=== PATIENT | female | born 1945 | race Caucasian/White ===

== ENCOUNTER 2023-12-16 17:22 | Emergency (ER) | payer MEDICAID, OTHER ==
[~2023-12-16] VITALS: Ht 175.3 cm; Wt 150.0 kg
[2023-12-16 18:39] LABS: Urine Bacteria FEW /hpf (None Seen); Urine Blood Negative /uL (Negative); Urine Clarity Clear (Clear); Urine Color Yellow (Yellow); Urine Mucus FEW (None Seen); Urine Protein, UAD TRACE (Negative); Urine Specific Gravity 1.015 (1.001-1.035); Urine Urobilinogen Normal (Negative); Urine WBC 1 /hpf (0 - 5); Urine pH 5.5 (5.0-8.0)
[2023-12-16 18:55] LABS: Hematocrit 33.5 % (36.0-46.0); Hemoglobin 10.5 g/dL (12.2-16.2); Mean Corpuscular Hemoglobin 27.2 pg (28.0-32.0); Mean Corpuscular Hgb Conc. 31.4 g/dL (32.0-36.0); Mean Corpuscular Volume 86.6 fL (80.0-100.0); Red Blood Cells 3.86 10^6/uL (4.0-5.20); Red Cell Distribution Width 17.6 % (11.8-14.3); White Blood Cell 9.9 10^3/uL (4.4-10.8)
[2023-12-16 18:57] LABS: Basophils % (manual) 0 (0.0-2.0); Blast Cells 0; Metamyelocytes % 0; Myelocytes % 0; Promyelocytes % 0; Reactive Lymphocytes 0
[2023-12-16 19:06] LABS: Alanine Aminotransferase 48 U/L (7-40); Albumin 3.4 g/dL (3.2-4.8); Alkaline Phosphatase 76 U/L (46-116); Anion Gap 5 (5-15); Aspartate Aminotransferase 113 U/L (13-40); Blood Urea Nitrogen 20 mg/dL (9-23); Calcium 8.8 mg/dL (8.7-10.4); Carbon Dioxide 31 mmol/L (20-30); Chloride 102 mmol/L (98-107); Glucose 244 mg/dL (74-106); Lipase 24 U/L (12-53); Magnesium 2.1 mg/dL (1.6-2.6); Sodium 138 mmol/L (136-145)
[2023-12-16 19:07] LABS: Bilirubin, Total 0.2 mg/dL (0.2-1.0); Total Protein 7.4 g/dL (5.7-8.2)
[2023-12-16 19:09] VITALS: PULSE 69; RESP 16
[2023-12-16 19:20] LABS: Band Neutrophils % (manual) 18; Eosinophils % (manual) 1 (0-7); Lymphocytes % (manual) 24 (10.0-50.0); Monocytes % (manual) 6 (0-12); Platelet Estimate Adequate
[2023-12-16 19:30] VITALS: PULSE 75; RESP 22; O2SAT 96
[2023-12-16 20:35] VITALS: PULSE 75; RESP 22; O2SAT 96
[2023-12-17] MEDS: SODIUM CHLORIDE 0.9% 1,000 ML IVB ONE (00:05)
[2023-12-17 07:45] VITALS: PULSE 66; RESP 22; O2SAT 91
[2023-12-17 19:30] VITALS: PULSE 82; RESP 21; O2SAT 96
[2023-12-18 07:30] VITALS: RESP 20; O2SAT 96
[2023-12-18 13:15] VITALS: BP 136/60; PULSE 85; RESP 20; TEMP 98.2; O2SAT 96
== END 2023-12-18 13:45 ==
LOC: ER 17:22 → EDBD 17:22 → ER 12-18 13:45
DX: K52.9 Noninfective gastroenteritis and colitis, unspecified (principal); J44.9 Chronic obstructive pulmonary disease, unspecified; I10 Essential (primary) hypertension; R74.8 Abnormal levels of other serum enzymes; R00.1 Bradycardia, unspecified; Z88.0 Allergy status to penicillin; Z88.6 Allergy status to analgesic agent; Z79.899 Other long term (current) drug therapy
CPT/HCPCS: 36415; 71045; 74176; 80053; 81001; 82962; 83605; 83690; 83735; 84484; 85007; 85027; 93005; 96360; 96361; 99285; J7030

== ENCOUNTER 2024-01-02 15:17 | Inpatient (IN) | payer MEDICARE, MEDICAID ==
[~2024-01-02] VITALS: Ht 167.6 cm; Wt 140.7 kg
[2024-01-02 16:52] LABS: Hematocrit 32.7 % (36.0-46.0); Hemoglobin 10.3 g/dL (12.2-16.2); Mean Corpuscular Hemoglobin 26.6 pg (28.0-32.0); Mean Corpuscular Hgb Conc. 31.6 g/dL (32.0-36.0); Red Blood Cells 3.89 10^6/uL (4.0-5.20); Red Cell Distribution Width 17.2 % (11.8-14.3); White Blood Cell 9.8 10^3/uL (4.4-10.8)
[2024-01-02 16:55] LABS: Basophils % (manual) 0 (0.0-2.0); Blast Cells 0; Metamyelocytes % 0; Myelocytes % 0; Promyelocytes % 0; Reactive Lymphocytes 0
[2024-01-02] MEDS ORDERED: SODIUM CHLORIDE 0.9% 4,100 ML IV ONE (17:15)
[2024-01-02] MEDS: AZTREONAM 1GM INJ 1 GM in D5W 5% 50 ML IV ONE (17:15)
[2024-01-02 17:29] LABS: Alkaline Phosphatase 49 U/L (46-116); Anion Gap 5 (5-15); Aspartate Aminotransferase 12 U/L (13-40); BUN/Creatinine Ratio 10.8 (10.0-20.0); Blood Urea Nitrogen 11 mg/dL (9-23); Calcium 8.3 mg/dL (8.5-10.1); Carbon Dioxide 29 mmol/L (20-30); Chloride 100 mmol/L (98-107); Glucose 137 mg/dL (74-106); Potassium 4.5 mmol/L (3.5-5.1); Sodium 134 mmol/L (136-145)
[2024-01-02 17:30] LABS: Albumin 2.9 g/dL (3.2-4.8); Bilirubin, Total < 0.2 mg/dL (0.2-1.0); Total Protein 6.9 g/dL (5.7-8.2)
[2024-01-02 17:32] LABS: Alanine Aminotransferase < 9 U/L (7-40)
[2024-01-02 17:33] LABS: Band Neutrophils % (manual) 5; Eosinophils % (manual) 35 (0-7); Lymphocytes % (manual) 15 (10.0-50.0); Monocytes % (manual) 10 (0-12); Platelet Estimate Adequate
[2024-01-02 17:34] LABS: Anisocytosis Slight
[2024-01-02] MEDS: ACETAMINOPHEN 325 MG TAB PO ONE (17:41)
[2024-01-02 17:44] LABS: INR 1.49 (0.9-1.15); Prothrombin Time 15.2 sec (9.3-11.8)
[2024-01-02] MEDS: SODIUM CHLORIDE 0.9% 1,000 ML IV ONE (18:02)
[2024-01-02] MEDS: VANCOMYCIN 1GM/200ML 200 ML IV ONE (18:02)
[2024-01-02] MEDS ORDERED: MORPHINE SULFATE INJ 2 MG/ml SYRG IV PRN (20:45)
[2024-01-02] MEDS ORDERED: NITROGLYCERIN 0.4 MG SL TAB SL PRN (20:45)
[2024-01-02 23:00] VITALS: PULSE 89; RESP 22; O2SAT 94
[2024-01-02] MEDS: CIPROFLOXACIN 400MG/200ML 200 ML IV ONE (23:24)
[2024-01-03] VITALS (54 sets, daily range): BP systolic 58–202; BP diastolic 24–122; PULSE 85–167; RESP 18–38; TEMP 96.6–104.9; O2SAT 91–100
[2024-01-03] MEDS: ACETAMINOPHEN 325 MG TAB PO PRN (00:11)
[2024-01-03] MEDS: diphenhdrAMINE HCL 50 MG/1 ML VL IV ONE (00:12)
[2024-01-03 00:46] LABS: Urine Bacteria FEW /hpf (None Seen); Urine Blood TRACE /uL (Negative); Urine Clarity Clear (Clear); Urine Color Yellow (Yellow); Urine Protein, UAD Negative (Negative); Urine Specific Gravity 1.013 (1.001-1.035); Urine Urobilinogen Normal (Negative); Urine WBC 1 /hpf (0 - 5)
[2024-01-03 01:39] LABS: COVID19 ANTIGEN SOFIA FIA NEGATIVE (NEGATIVE); Rapid Influenza A Negative (Negative); Rapid Influenza B Negative (Negative)
[2024-01-03] MEDS ORDERED: ALBUTEROL SULF 2.5 MG/0.5ML(0.5%) NEB SOLN NEB PRN (07:00)
[2024-01-03] MEDS ORDERED: diphenhdrAMINE HCL 50 MG/1 ML VL IV PRN (08:30)
[2024-01-03] MEDS: ENOXAPARIN SOD 40 MG/0.4 ML SYRINGE SC SCH (08:36)
[2024-01-03] MEDS: LISINOPRIL 5 MG TAB PO SCH (08:36)
[2024-01-03] MEDS: levoFLOXacin 500MG 100 ML IV SCH (08:37)
[2024-01-03 09:22] LABS: Base Excess -1.5 mmol/L (-2.0-2.0)
[2024-01-03] MEDS: FUROSEMIDE 40 MG/4 ML VIAL IV ONE (09:35)
[2024-01-03 09:38] LABS: Hemoglobin 10.5 g/dL (12.2-16.2); Mean Corpuscular Hgb Conc. 31.8 g/dL (32.0-36.0); Mean Corpuscular Volume 85.1 fL (80.0-100.0); Red Blood Cells 3.88 10^6/uL (4.0-5.20); Red Cell Distribution Width 17.3 % (11.8-14.3); White Blood Cell 8.1 10^3/uL (4.4-10.8)
[2024-01-03 09:45] LABS: Alkaline Phosphatase 54 U/L (46-116); Anion Gap 4 (5-15); Aspartate Aminotransferase 18 U/L (13-40); BUN/Creatinine Ratio 16.5 (10.0-20.0); Blood Urea Nitrogen 15 mg/dL (9-23); Calcium 7.7 mg/dL (8.5-10.1); Carbon Dioxide 29 mmol/L (20-30); Chloride 99 mmol/L (98-107); Glucose 160 mg/dL (74-106); Potassium 4.6 mmol/L (3.5-5.1); Sodium 132 mmol/L (136-145)
[2024-01-03 09:46] LABS: Albumin 2.8 g/dL (3.2-4.8); Basophils % (manual) 0 (0.0-2.0); Bilirubin, Total 0.2 mg/dL (0.2-1.0); Blast Cells 0; Promyelocytes % 0; Total Protein 6.8 g/dL (5.7-8.2)
[2024-01-03] MEDS: ALBUTEROL SULF 2.5 MG/0.5ML(0.5%) NEB SOLN NEB PRN (09:46)
[2024-01-03 09:47] LABS: Alanine Aminotransferase < 9 U/L (7-40)
[2024-01-03] MEDS ORDERED: FUROSEMIDE 40 MG TAB PO SCH (10:00)
[2024-01-03] MEDS: LORazepam 2MG/ML-1ML VIAL IV ONE (10:33)
[2024-01-03] MEDS: ETOMIDATE (2MG/ML) 20ML VIAL IV ONE ×2 (11:30→11:33)
[2024-01-03] MEDS: ROCURONIUM 10MG/ML 10ML VIAL IV ONE ×2 (11:30→11:33)
[2024-01-03] MEDS: MIDAZOLAM DRIP 50 mg/50mL 50 ML IV SCH (11:34)
[2024-01-03 12:28] LABS: Band Neutrophils % (manual) 10; Eosinophils % (manual) 15 (0-7); Lymphocytes % (manual) 44 (10.0-50.0); Metamyelocytes % 1; Monocytes % (manual) 4 (0-12); Myelocytes % 1; Platelet Estimate Adequate; Reactive Lymphocytes 2
[2024-01-03] MEDS: fentaNYL Drip 2500mCg/250mlNS 250 ML IV SCH (13:47)
[2024-01-03] MEDS ORDERED: VANCOMYCIN PER PHARMACY 0 MG IV SCH (14:00)
[2024-01-03] MEDS: ACETAMINOPHEN 325 MG TAB PO ONE (14:00)
[2024-01-03] MEDS ORDERED: CLINDAMYCIN 600MG IV 50 ML IV SCH (14:00)
[2024-01-03] MEDS ORDERED: ACETAMINOPHEN 325 MG TAB PO PRN (14:00)
[2024-01-03] MEDS: NOREPINEPHRINE 8 MG/250ML KIT 250 ML IV ONE (14:07)
[2024-01-03] MEDS: NOREPINEPHRINE 8 MG/250ML KIT 250 ML IV SCH (14:12)
[2024-01-03] MEDS: ACETAMINOPHEN IV 1000 MG/100ML (10MG/ML) IV PRN (14:45)
[2024-01-03] MEDS: ACETAMINOPHEN IV 1000 MG/100ML (10MG/ML) IV ONE (15:00)
[2024-01-03 15:28] LABS: Amphetamine Screen, Urine Neg (NEGATIVE); Barbiturate Scree,Urine Neg (NEGATIVE); Benzodiazephine Screen, Urine Pos (NEGATIVE)
[2024-01-03 15:29] LABS: Cannabinoid Screen, Urine Neg (NEGATIVE); Cocaine Screen, Urine Neg (NEGATIVE); Opiate Scree,Urine Neg (NEGATIVE); Phencyclidine Screen, Urine Neg (NEGATIVE)
[2024-01-03 15:45] LABS: Hematocrit 35.2 % (36.0-46.0); Mean Corpuscular Hemoglobin 26.4 pg (28.0-32.0); Mean Corpuscular Hgb Conc. 31.3 g/dL (32.0-36.0); Mean Corpuscular Volume 84.4 fL (80.0-100.0); Red Blood Cells 4.17 10^6/uL (4.0-5.20); Red Cell Distribution Width 17.2 % (11.8-14.3); White Blood Cell 13.7 10^3/uL (4.4-10.8)
[2024-01-03 15:46] LABS: Basophils % (manual) 0 (0.0-2.0); Blast Cells 0; Metamyelocytes % 0; Myelocytes % 0; Promyelocytes % 0; Reactive Lymphocytes 0
[2024-01-03 15:53] LABS: Chloride 98 mmol/L (98-107); Potassium 4.3 mmol/L (3.5-5.1); Sodium 132 mmol/L (136-145)
[2024-01-03 15:54] LABS: Anion Gap 9 (5-15); Calcium 7.8 mg/dL (8.7-10.4); Carbon Dioxide 25 mmol/L (20-30)
[2024-01-03 15:59] LABS: BUN/Creatinine Ratio 14.6 (10.0-20.0); Blood Urea Nitrogen 18 mg/dL (9-23); Glucose 194 mg/dL (74-106)
[2024-01-03] MEDS: VANCOMYCIN 1GM/200ML 200 ML IV SCH (16:21)
[2024-01-03 17:34] LABS: Band Neutrophils % (manual) 8; Eosinophils % (manual) 32 (0-7); Lymphocytes % (manual) 18 (10.0-50.0); Monocytes % (manual) 7 (0-12)
[2024-01-03 17:35] LABS: Anisocytosis Slight; Platelet Estimate Adequate
[2024-01-03] MEDS: FUROSEMIDE 40 MG/4 ML VIAL IV SCH (18:35)
[2024-01-03 19:28] LABS: Lactic Acid w/Reflex 2.6 mmol/L (0.4-2.0)
[2024-01-03] MEDS: NYSTATIN TOPICAL POWDER 15GM TOP SCH (22:00)
[2024-01-04] VITALS (89 sets, daily range): BP systolic 62–144; BP diastolic 32–68; PULSE 69–115; RESP 13–25; TEMP 97.3–100.6; O2SAT 92–100
[2024-01-04 03:43] LABS: Hemoglobin 10.7 g/dL (12.2-16.2); White Blood Cell 15.5 10^3/uL (4.4-10.8)
[2024-01-04 03:46] LABS: Hematocrit 34.2 % (36.0-46.0); Mean Corpuscular Hemoglobin 26.5 pg (28.0-32.0); Mean Corpuscular Hgb Conc. 31.3 g/dL (32.0-36.0); Mean Corpuscular Volume 84.7 fL (80.0-100.0); Red Blood Cells 4.03 10^6/uL (4.0-5.20); Red Cell Distribution Width 17.3 % (11.8-14.3)
[2024-01-04 03:50] LABS: Basophils % (manual) 0 (0.0-2.0); Blast Cells 0; Metamyelocytes % 0; Promyelocytes % 0; Reactive Lymphocytes 0
[2024-01-04 03:57] LABS: Albumin 2.3 g/dL (3.2-4.8); Alkaline Phosphatase 69 U/L (46-116); Anion Gap 8 (5-15); Aspartate Aminotransferase 16 U/L (13-40); BUN/Creatinine Ratio 16.3 (10.0-20.0); Blood Urea Nitrogen 23 mg/dL (9-23); Calcium 7.4 mg/dL (8.5-10.1); Carbon Dioxide 26 mmol/L (20-30); Chloride 99 mmol/L (98-107); Cholesterol 97 mg/dL (< 200); Glucose 176 mg/dL (74-106); HDL Cholesterol < 5 mg/dL (40-59); LDL Cholesterol 26 mg/dL (< 100); Potassium 4.3 mmol/L (3.5-5.1); Sodium 133 mmol/L (136-145); Triglycerides 259 mg/dL (< 150)
[2024-01-04 03:58] LABS: Bilirubin, Total 0.3 mg/dL (0.2-1.0); Total Protein 6.2 g/dL (5.7-8.2)
[2024-01-04 04:00] LABS: Alanine Aminotransferase < 9 U/L (7-40)
[2024-01-04 04:11] LABS: Lipase 15 U/L (12-53); Magnesium 1.5 mg/dL (1.6-2.6)
[2024-01-04 04:37] LABS: Anisocytosis Slight; Band Neutrophils % (manual) 31; Eosinophils % (manual) 27 (0-7); Lymphocytes % (manual) 9 (10.0-50.0); Monocytes % (manual) 8 (0-12); Myelocytes % 1; Platelet Estimate Adequate
[2024-01-04 04:38] LABS: Ovalocytes FEW
[2024-01-04 04:39] LABS: Large Platelets FEW
[2024-01-04 04:40] LABS: Stomatocytes Moderate
[2024-01-04] MEDS: MAGNESIUM SULFATE 1GM/100ML 100 ML IV SCH (05:08)
[2024-01-04 07:35] LABS: Base Excess -2.7 mmol/L (-2.0-2.0)
[2024-01-04] MEDS: ASPirin 325 MG TAB PO ONE (10:15)
[2024-01-04] MEDS: PANTOPRAZOLE 40 MG/10 ML VIAL INJ IV ONE (10:40)
[2024-01-04] MEDS: MEROPENEM 1GM IVPB 50 ML IV ONE (10:40)
[2024-01-04] MEDS: SODIUM CHLORIDE 0.9% 500 ML IV ONE (10:55)
[2024-01-04 11:30] LABS: Hemoglobin 10.8 g/dL (12.2-16.2)
[2024-01-04 11:32] LABS: Hematocrit 33.9 % (36.0-46.0); Mean Corpuscular Hemoglobin 26.7 pg (28.0-32.0); Mean Corpuscular Hgb Conc. 31.9 g/dL (32.0-36.0); Mean Corpuscular Volume 83.9 fL (80.0-100.0); Red Blood Cells 4.04 10^6/uL (4.0-5.20); Red Cell Distribution Width 17.2 % (11.8-14.3); White Blood Cell 15.6 10^3/uL (4.4-10.8)
[2024-01-04 11:41] LABS: Basophils % (manual) 0 (0.0-2.0); Blast Cells 0; Metamyelocytes % 0; Myelocytes % 0; Promyelocytes % 0; Reactive Lymphocytes 0
[2024-01-04 11:46] LABS: INR 2.45 (0.9-1.15); Partial Thromboplastin Time 49.2 SEC (24.5-34.5); Prothrombin Time 24.3 sec (9.3-11.8)
[2024-01-04] MEDS: SODIUM CHLORIDE 0.9% 1,000 ML IV SCH (12:00)
[2024-01-04 12:51] LABS: Band Neutrophils % (manual) 13; Eosinophils % (manual) 39 (0-7); Lymphocytes % (manual) 14 (10.0-50.0); Monocytes % (manual) 3 (0-12)
[2024-01-04 12:52] LABS: Platelet Estimate Adequate; RBC Morphology Normal
[2024-01-04] MEDS: HEPARIN DRIP/D5W 100UNITS/ML 250 ML IV SCH ×2 (12:57→21:15)
[2024-01-04] MEDS: ACETAMINOPHEN 650 mg PER 20.3 mL UD GT PRN (17:13)
[2024-01-04 20:10] LABS: INR 2.63 (0.9-1.15); Prothrombin Time 25.9 sec (9.3-11.8)
[2024-01-04 20:17] LABS: Partial Thromboplastin Time 113.4 SEC (24.5-34.5)
[2024-01-04] MEDS: MUPIROCIN 2% OINT 15gm or 22gm TOP SCH (22:00)
[2024-01-04] MEDS: MEROPENEM 1GM IVPB 50 ML IV SCH (22:00)
[2024-01-05] VITALS (83 sets, daily range): BP systolic 72–143; BP diastolic 29–88; PULSE 82–121; RESP 17–25; TEMP 98.2–99.5; O2SAT 89–99
[2024-01-05 02:13] LABS: Hematocrit 35.4 % (36.0-46.0); Hemoglobin 10.9 g/dL (12.2-16.2); Mean Corpuscular Hemoglobin 26.4 pg (28.0-32.0); Mean Corpuscular Hgb Conc. 30.9 g/dL (32.0-36.0); Mean Corpuscular Volume 85.4 fL (80.0-100.0); Red Blood Cells 4.14 10^6/uL (4.0-5.20); Red Cell Distribution Width 17.8 % (11.8-14.3); White Blood Cell 21.2 10^3/uL (4.4-10.8)
[2024-01-05 02:18] LABS: Basophils % (manual) 0 (0.0-2.0); Blast Cells 0; Metamyelocytes % 0; Myelocytes % 0; Promyelocytes % 0; Reactive Lymphocytes 0
[2024-01-05 02:32] LABS: Albumin 2.2 g/dL (3.2-4.8); Alkaline Phosphatase 146 U/L (46-116); Anion Gap 12 (5-15); Aspartate Aminotransferase 24 U/L (13-40); BUN/Creatinine Ratio 16.7 (10.0-20.0); Bilirubin, Total 0.3 mg/dL (0.2-1.0); Blood Urea Nitrogen 21 mg/dL (9-23); Calcium 7.6 mg/dL (8.7-10.4); Carbon Dioxide 20 mmol/L (20-30); Chloride 101 mmol/L (98-107); Glucose 178 mg/dL (74-106); Magnesium 1.9 mg/dL (1.6-2.6); Sodium 133 mmol/L (136-145); Total Protein 6.2 g/dL (5.7-8.2)
[2024-01-05 02:39] LABS: INR 2.6 (0.9-1.15); Prothrombin Time 25.6 sec (9.3-11.8)
[2024-01-05 03:01] LABS: Alanine Aminotransferase < 9 U/L (7-40)
[2024-01-05 03:02] LABS: Partial Thromboplastin Time 87.1 SEC (24.5-34.5)
[2024-01-05 05:23] LABS: Band Neutrophils % (manual) 30; Eosinophils % (manual) 33 (0-7); Lymphocytes % (manual) 15 (10.0-50.0); Monocytes % (manual) 7 (0-12)
[2024-01-05 05:24] LABS: Platelet Estimate Adequate
[2024-01-05 07:19] LABS: Base Excess -6.4 mmol/L (-2.0-2.0)
[2024-01-05] MEDS: PANTOPRAZOLE 40 MG/10 ML VIAL INJ IV SCH (10:47)
[2024-01-05 11:19] LABS: INR 2.62 (0.9-1.15); Partial Thromboplastin Time 59.8 SEC (24.5-34.5); Prothrombin Time 25.8 sec (9.3-11.8)
[2024-01-05] MEDS: ASPirin 81 mg TAB PO SCH (11:33)
[2024-01-05 17:17] LABS: INR 2.58 (0.9-1.15); Partial Thromboplastin Time 63.5 SEC (24.5-34.5); Prothrombin Time 25.5 sec (9.3-11.8)
[2024-01-05] MEDS: PHENYLEPHRINE IV 250 ML IV ONE (22:50)
[2024-01-05] MEDS: PHENYLEPHRINE IV 250 ML IV SCH (22:50)
[2024-01-05 22:52] LABS: INR 2.48 (0.9-1.15); Partial Thromboplastin Time 67.9 SEC (24.5-34.5); Prothrombin Time 24.5 sec (9.3-11.8)
[2024-01-05 23:07] LABS: Hematocrit 36.3 % (36.0-46.0)
[2024-01-05 23:10] LABS: Lactic Acid w/Reflex 2.1 mmol/L (0.4-2.0)
[2024-01-06] VITALS (106 sets, daily range): BP systolic 76–186; BP diastolic 18–91; PULSE 88–181; RESP 16–27; TEMP 98.6–100.6; O2SAT 90–100
[2024-01-06] MEDS: VASOPRESSIN 20 UNITS in SODIUM CHL 0.9% 99 ML IV SCH (02:00)
[2024-01-06 04:23] LABS: Mean Corpuscular Hemoglobin 26.3 pg (28.0-32.0)
[2024-01-06] MEDS: HEPARIN DRIP/D5W 100UNITS/ML 250 ML IV SCH (04:23)
[2024-01-06 04:26] LABS: Hematocrit 35.1 % (36.0-46.0); Hemoglobin 10.8 g/dL (12.2-16.2); Mean Corpuscular Hgb Conc. 30.9 g/dL (32.0-36.0); Mean Corpuscular Volume 85.1 fL (80.0-100.0); Red Blood Cells 4.13 10^6/uL (4.0-5.20); Red Cell Distribution Width 18.2 % (11.8-14.3); White Blood Cell 29.4 10^3/uL (4.4-10.8)
[2024-01-06 04:42] LABS: Band Neutrophils % (manual) 0; Basophils % (manual) 0 (0.0-2.0); Blast Cells 0; Metamyelocytes % 0; Myelocytes % 0; Promyelocytes % 0; Reactive Lymphocytes 0
[2024-01-06 04:44] LABS: Albumin 2.1 g/dL (3.2-4.8); Alkaline Phosphatase 291 U/L (46-116); Anion Gap 9 (5-15); Aspartate Aminotransferase 18 U/L (13-40); BUN/Creatinine Ratio 14.3 (10.0-20.0); Bilirubin, Total 0.2 mg/dL (0.2-1.0); Blood Urea Nitrogen 22 mg/dL (9-23); Calcium 7.5 mg/dL (8.7-10.4); Carbon Dioxide 21 mmol/L (20-30); Chloride 104 mmol/L (98-107); Glucose 183 mg/dL (74-106); Magnesium 2.1 mg/dL (1.6-2.6); Potassium 4.3 mmol/L (3.5-5.1); Sodium 134 mmol/L (136-145); Total Protein 6.5 g/dL (5.7-8.2)
[2024-01-06 04:51] LABS: Alanine Aminotransferase < 9 U/L (7-40)
[2024-01-06 06:36] LABS: Eosinophils % (manual) 46 (0-7); Lymphocytes % (manual) 17 (10.0-50.0); Monocytes % (manual) 4 (0-12); Platelet Estimate Adequate
[2024-01-06 07:45] LABS: INR 3.02 (0.9-1.15); Partial Thromboplastin Time 63.8 SEC (24.5-34.5); Prothrombin Time 29.5 sec (9.3-11.8)
[2024-01-06] MEDS: NOREPINEPHRINE BITARTRATE 32 MG in SODIUM CHL 0.9% 218 ML IV SCH (09:22)
[2024-01-06] MEDS: PHENYLEPHRINE INJ 80 MG in SODIUM CHL 0.9% 242 ML IV SCH (09:34)
[2024-01-06 09:38] LABS: Base Excess -8.2 mmol/L (-2.0-2.0)
[2024-01-06] MEDS: BUMETANIDE 2.5mg/10ml (0.25 mg/ml) INJ IV SCH (13:04)
[2024-01-06 13:05] LABS: Creatinine, Urine 151.72 mg/dL (30.0-125.0)
[2024-01-06 13:06] LABS: Creatinine, Urine 149.9 mg/dL (30.0-125.0)
[2024-01-06 13:08] LABS: Protein, Urine 385.6 mg/dL (0.0-11.9); Urine Protein/Creatinine Ratio 2.57
[2024-01-06] MEDS: DOPamine 1600MCG/ML D5W 250 ML IV SCH (15:32)
[2024-01-06] MEDS: EPINEPHrine HCL 250 ML IV ONE (19:19)
[2024-01-06] MEDS: EPINEPHrine HCL 250 ML IV SCH (19:19)
[2024-01-06] MEDS: SODIUM CHLORIDE 0.9% 500 ML IV ONE (19:34)
[2024-01-07] VITALS (83 sets, daily range): BP systolic 88–166; BP diastolic 22–65; PULSE 58–112; RESP 23–28; TEMP 97.7–99.7; O2SAT 96–100
[2024-01-07 04:24] LABS: Hemoglobin 10.7 g/dL (12.2-16.2); Mean Corpuscular Hemoglobin 26.2 pg (28.0-32.0)
[2024-01-07 04:27] LABS: Hematocrit 33.9 % (36.0-46.0); Mean Corpuscular Hgb Conc. 31.6 g/dL (32.0-36.0); Mean Corpuscular Volume 83.1 fL (80.0-100.0); Red Blood Cells 4.08 10^6/uL (4.0-5.20); White Blood Cell 22.8 10^3/uL (4.4-10.8)
[2024-01-07 04:33] LABS: Basophils % (manual) 0 (0.0-2.0); Blast Cells 0; Promyelocytes % 0; Reactive Lymphocytes 0
[2024-01-07 04:42] LABS: Albumin 1.7 g/dL (3.2-4.8); Alkaline Phosphatase 374 U/L (46-116); Anion Gap 9 (5-15); Aspartate Aminotransferase 27 U/L (13-40); Blood Urea Nitrogen 25 mg/dL (9-23); Calcium 7.2 mg/dL (8.7-10.4); Carbon Dioxide 19 mmol/L (20-30); Chloride 109 mmol/L (98-107); Glucose 177 mg/dL (74-106); Magnesium 1.9 mg/dL (1.6-2.6); Potassium 4.1 mmol/L (3.5-5.1); Sodium 137 mmol/L (136-145)
[2024-01-07 04:43] LABS: Bilirubin, Total 0.3 mg/dL (0.2-1.0); Total Protein 5.7 g/dL (5.7-8.2)
[2024-01-07 04:54] LABS: INR 3.93 (0.9-1.15); Prothrombin Time 37.7 sec (9.3-11.8)
[2024-01-07 04:56] LABS: Partial Thromboplastin Time 106.5 SEC (24.5-34.5)
[2024-01-07 04:58] LABS: Alanine Aminotransferase < 9 U/L (7-40)
[2024-01-07] MEDS: HEPARIN DRIP/D5W 100UNITS/ML 250 ML IV SCH (06:21)
[2024-01-07 07:29] LABS: Eosinophils % (manual) 37 (0-7); Myelocytes % 1
[2024-01-07 07:30] LABS: Band Neutrophils % (manual) 5; Lymphocytes % (manual) 13 (10.0-50.0); Metamyelocytes % 1; Monocytes % (manual) 4 (0-12)
[2024-01-07 07:32] LABS: Anisocytosis Slight; Hypochromia Slight; Platelet Estimate Decreased
[2024-01-07 07:32] LABS: Base Excess -8.9 mmol/L (-2.0-2.0)
[2024-01-07] MEDS: SODIUM BICARB 50mEq/50ml Vial 50 ML in SOD CHL 0.45% 1,000 ML IV SCH (13:42)
[2024-01-08] VITALS (106 sets, daily range): BP systolic 74–155; BP diastolic 26–67; PULSE 60–111; RESP 20–30; TEMP 97.5–99; O2SAT 95–100
[2024-01-08 03:51] LABS: Hemoglobin 9.9 g/dL (12.2-16.2)
[2024-01-08 03:54] LABS: Hematocrit 31.1 % (36.0-46.0); Mean Corpuscular Hemoglobin 26.6 pg (28.0-32.0); Mean Corpuscular Volume 83.3 fL (80.0-100.0); Red Blood Cells 3.73 10^6/uL (4.0-5.20); Red Cell Distribution Width 18.4 % (11.8-14.3); White Blood Cell 26.6 10^3/uL (4.4-10.8)
[2024-01-08 04:01] LABS: Basophils % (manual) 0 (0.0-2.0); Blast Cells 0; Myelocytes % 0; Promyelocytes % 0
[2024-01-08 04:02] LABS: Chloride 110 mmol/L (98-107); Potassium 4.1 mmol/L (3.5-5.1); Sodium 136 mmol/L (136-145)
[2024-01-08 04:03] LABS: Anion Gap 6 (5-15); Carbon Dioxide 20 mmol/L (20-30)
[2024-01-08 04:04] LABS: Calcium 7.3 mg/dL (8.7-10.4)
[2024-01-08 04:09] LABS: BUN/Creatinine Ratio 14.2 (10.0-20.0); Blood Urea Nitrogen 32 mg/dL (9-23); Glucose 182 mg/dL (74-106)
[2024-01-08 07:41] LABS: Base Excess -7.1 mmol/L (-2.0-2.0)
[2024-01-08 08:25] LABS: Band Neutrophils % (manual) 7; Eosinophils % (manual) 42 (0-7); Lymphocytes % (manual) 16 (10.0-50.0); Metamyelocytes % 1; Monocytes % (manual) 5 (0-12); Reactive Lymphocytes 1
[2024-01-08 08:26] LABS: Anisocytosis Slight; Platelet Estimate Decreased
[2024-01-08] MEDS: VANCOMYCIN 1GM/200ML 200 ML IV ONE (10:12)
[2024-01-08] MEDS: Jevity 1.2 Cal/Fiber 1 Liter GT SCH (10:23)
[2024-01-08] MEDS: ALBUTEROL SULF 2.5 MG/0.5ML(0.5%) NEB SOLN NEB PRN (13:43)
[2024-01-08] MEDS: IPRATROPIUM BROM 0.5 MG/2.5ML INH SOL NEB PRN (13:43)
[2024-01-09] VITALS (109 sets, daily range): BP systolic 86–204; BP diastolic 24–68; PULSE 62–120; RESP 14–27; TEMP 75.4–99.3; O2SAT 88–100
[2024-01-09 04:09] LABS: Calcium 6.8 mg/dL (8.7-10.4); Chloride 109 mmol/L (98-107); Potassium 3.8 mmol/L (3.5-5.1); Sodium 138 mmol/L (136-145)
[2024-01-09 04:10] LABS: Anion Gap 6 (5-15); Carbon Dioxide 23 mmol/L (20-30); Hemoglobin 8.3 g/dL (12.2-16.2); Mean Corpuscular Hemoglobin 26.1 pg (28.0-32.0)
[2024-01-09 04:12] LABS: Hematocrit 26.4 % (36.0-46.0); Mean Corpuscular Hgb Conc. 31.5 g/dL (32.0-36.0); Mean Corpuscular Volume 82.8 fL (80.0-100.0); Red Cell Distribution Width 18.3 % (11.8-14.3)
[2024-01-09 04:15] LABS: BUN/Creatinine Ratio 16.9 (10.0-20.0); Blood Urea Nitrogen 35 mg/dL (9-23); Glucose 148 mg/dL (74-106)
[2024-01-09 04:27] LABS: Basophils % (manual) 0 (0.0-2.0); Blast Cells 0; Myelocytes % 0; Promyelocytes % 0; Reactive Lymphocytes 0
[2024-01-09 05:24] LABS: Anisocytosis Slight; Band Neutrophils % (manual) 13; Eosinophils % (manual) 39 (0-7); Lymphocytes % (manual) 13 (10.0-50.0); Metamyelocytes % 1; Monocytes % (manual) 2 (0-12); Platelet Estimate Decreased; Smudge Cells 3 /100 WBC
[2024-01-09 05:25] LABS: Stomatocytes Few; Target Cell FEW
[2024-01-09 08:17] LABS: Base Excess -5.9 mmol/L (-2.0-2.0)
[2024-01-09] MEDS ORDERED: ALBUMIN 25% 100 ML IV SCH (14:15)
[2024-01-09] MEDS: ALBUMIN 25% 100 ML IV ONE ×2 (14:15→15:40)
[2024-01-09] MEDS ORDERED: metOLazone 5 MG TAB GT SCH (14:15)
[2024-01-09] MEDS: DOPamine 1600MCG/ML D5W 250 ML IV SCH (15:28)
[2024-01-09] MEDS: SODIUM BICARBONATE 650 MG TAB NG SCH (15:40)
[2024-01-09] MEDS: BUMETANIDE INJECTION 12.5 MG in GIVE UN-DILUTED 0 ML IV SCH (16:10)
[2024-01-09] MEDS: metOLazone 5 MG TAB GT ONE (16:16)
[2024-01-09] MEDS: MIDODRINE HCL 10 MG TAB PO SCH (18:08)
[2024-01-09] MEDS: METOCLOPRAMIDE HCL 5MG/ml INJ 2ml VIAL IV SCH (18:08)
[2024-01-09] MEDS: ALBUMIN 25% 100 ML IV SCH (23:54)
[2024-01-10] VITALS (107 sets, daily range): BP systolic 77–178; BP diastolic 8–74; PULSE 74–115; RESP 22–26; TEMP 97.3–98.6; O2SAT 89–100
[2024-01-10 02:38] LABS: Hematocrit 29.4 % (36.0-46.0)
[2024-01-10 02:41] LABS: Hemoglobin 9.4 g/dL (12.2-16.2); Mean Corpuscular Hemoglobin 26.3 pg (28.0-32.0); Red Blood Cells 3.59 10^6/uL (4.0-5.20); Red Cell Distribution Width 17.7 % (11.8-14.3); White Blood Cell 28.5 10^3/uL (4.4-10.8)
[2024-01-10 02:45] LABS: Basophils % (manual) 0 (0.0-2.0); Blast Cells 0; Myelocytes % 0; Promyelocytes % 0; Reactive Lymphocytes 0
[2024-01-10 02:47] LABS: Chloride 107 mmol/L (98-107); Potassium 3.5 mmol/L (3.5-5.1); Sodium 137 mmol/L (136-145)
[2024-01-10 02:48] LABS: Anion Gap 8 (5-15); Calcium 7.4 mg/dL (8.7-10.4); Carbon Dioxide 22 mmol/L (20-30)
[2024-01-10 02:53] LABS: Glucose 204 mg/dL (74-106)
[2024-01-10 02:54] LABS: BUN/Creatinine Ratio 22.9 (10.0-20.0); Blood Urea Nitrogen 38 mg/dL (9-23)
[2024-01-10 02:55] LABS: Albumin 2.2 g/dL (3.2-4.8)
[2024-01-10 06:41] LABS: Band Neutrophils % (manual) 20; Eosinophils % (manual) 39 (0-7); Lymphocytes % (manual) 12 (10.0-50.0); Metamyelocytes % 10; Monocytes % (manual) 2 (0-12)
[2024-01-10 06:44] LABS: Platelet Estimate Decreased
[2024-01-10 08:00] LABS: Base Excess -6.3 mmol/L (-2.0-2.0)
[2024-01-10] MEDS ORDERED: CEFEPIME 1GM/ 50ML 50 ML IV SCH (10:00)
[2024-01-10] MEDS: metOLazone 5 MG TAB GT SCH (10:58)
[2024-01-10] MEDS ORDERED: EPINEPHrine HCL 1 MG/1 ML AMP ONE (11:24)
[2024-01-10] MEDS ORDERED: LIDOCAINE 2% JELLY 11ml (GLYDO) ONE (11:24)
[2024-01-10] MEDS ORDERED: LIDOCAINE 2%HCL (LOCAL ANESTH.) INJ 20ML MDV ONE (11:24)
[2024-01-10] MEDS ORDERED: GLYCOPYRROLATE 0.2 MG/ML 1ML VIAL ONE (11:24)
[2024-01-10] MEDS: ALBUMIN 25% 100 ML IV ONE (14:35)
[2024-01-10] MEDS: ALBUMIN 25% 100 ML IV SCH (21:35)
[2024-01-11] VITALS (127 sets, daily range): BP systolic 87–166; BP diastolic 2–136; PULSE 87–114; RESP 13–30; TEMP 97.7–99.1; O2SAT 91–100
[2024-01-11 04:27] LABS: Mean Corpuscular Hgb Conc. 31.8 g/dL (32.0-36.0)
[2024-01-11 04:28] LABS: Hematocrit 27.5 % (36.0-46.0); Hemoglobin 8.8 g/dL (12.2-16.2); Mean Corpuscular Hemoglobin 26.2 pg (28.0-32.0); Mean Corpuscular Volume 82.3 fL (80.0-100.0); Red Blood Cells 3.35 10^6/uL (4.0-5.20); Red Cell Distribution Width 17.5 % (11.8-14.3); White Blood Cell 28.1 10^3/uL (4.4-10.8)
[2024-01-11 04:30] LABS: Chloride 108 mmol/L (98-107); Sodium 140 mmol/L (136-145)
[2024-01-11 04:31] LABS: Anion Gap 5 (5-15); Calcium 7.6 mg/dL (8.7-10.4); Carbon Dioxide 27 mmol/L (20-30)
[2024-01-11 04:36] LABS: BUN/Creatinine Ratio 28.5 (10.0-20.0); Blood Urea Nitrogen 35 mg/dL (9-23); Glucose 169 mg/dL (74-106)
[2024-01-11 04:40] LABS: Basophils % (manual) 0 (0.0-2.0); Blast Cells 0; Myelocytes % 0; Promyelocytes % 0; Reactive Lymphocytes 0
[2024-01-11 07:03] LABS: Anisocytosis Slight; Band Neutrophils % (manual) 4; Eosinophils % (manual) 49 (0-7); Lymphocytes % (manual) 14 (10.0-50.0); Metamyelocytes % 1; Monocytes % (manual) 1 (0-12); Platelet Estimate Decreased; Stomatocytes Many
[2024-01-11 07:44] LABS: Base Excess -3.1 mmol/L (-2.0-2.0)
[2024-01-11] MEDS: POTASSIUM CHL 20MEQ/100ML 100 ML IV ONE ×2 (08:06→17:49)
[2024-01-11] MEDS: AZITHROMYCIN 500MG/ 250ML 250 ML IV ONE (14:32)
[2024-01-12] VITALS (111 sets, daily range): BP systolic 77–178; BP diastolic 18–106; PULSE 75–122; RESP 22–51; TEMP 97.2–99.3; O2SAT 81–100
[2024-01-12 04:16] LABS: Hematocrit 26.2 % (36.0-46.0); Hemoglobin 8.3 g/dL (12.2-16.2); Mean Corpuscular Hemoglobin 26.4 pg (28.0-32.0); Mean Corpuscular Hgb Conc. 31.8 g/dL (32.0-36.0); Mean Corpuscular Volume 82.8 fL (80.0-100.0); Red Blood Cells 3.16 10^6/uL (4.0-5.20); Red Cell Distribution Width 17.6 % (11.8-14.3); White Blood Cell 27.9 10^3/uL (4.4-10.8)
[2024-01-12 04:21] LABS: Calcium 7.6 mg/dL (8.7-10.4); Chloride 106 mmol/L (98-107); Potassium 3.3 mmol/L (3.5-5.1); Sodium 140 mmol/L (136-145)
[2024-01-12 04:22] LABS: Anion Gap 5 (5-15); Carbon Dioxide 29 mmol/L (20-30)
[2024-01-12 04:24] LABS: Basophils % (manual) 0 (0.0-2.0); Blast Cells 0; Promyelocytes % 0; Reactive Lymphocytes 0
[2024-01-12 04:27] LABS: BUN/Creatinine Ratio 33.3 (10.0-20.0); Blood Urea Nitrogen 38 mg/dL (9-23); Glucose 168 mg/dL (74-106)
[2024-01-12 05:19] LABS: Band Neutrophils % (manual) 15; Eosinophils % (manual) 53 (0-7); Lymphocytes % (manual) 5 (10.0-50.0); Metamyelocytes % 6; Monocytes % (manual) 1 (0-12); Myelocytes % 4; Platelet Estimate Decreased
[2024-01-12] MEDS: POTASSIUM CHL 20MEQ/100ML 100 ML IV SCH (08:09)
[2024-01-12 08:16] LABS: Base Excess 0.1 mmol/L (-2.0-2.0)
[2024-01-12] MEDS: MAGNESIUM SULFATE 1GM/100ML 100 ML IV SCH (10:06)
[2024-01-12] MEDS: AZITHROMYCIN 500MG/ 250ML 250 ML IV SCH (11:15)
[2024-01-12] MEDS: MEROPENEM 1GM IVPB 50 ML IV SCH (18:45)
[2024-01-13] VITALS (108 sets, daily range): BP systolic 80–170; BP diastolic 29–101; PULSE 93–124; RESP 9–41; TEMP 98.4–99.5; O2SAT 88–100
[2024-01-13 03:57] LABS: Hematocrit 27.9 % (36.0-46.0); Hemoglobin 8.6 g/dL (12.2-16.2); Mean Corpuscular Hemoglobin 26.1 pg (28.0-32.0); Mean Corpuscular Hgb Conc. 30.9 g/dL (32.0-36.0); Mean Corpuscular Volume 84.2 fL (80.0-100.0); Red Blood Cells 3.31 10^6/uL (4.0-5.20); Red Cell Distribution Width 17.2 % (11.8-14.3); White Blood Cell 26.7 10^3/uL (4.4-10.8)
[2024-01-13 03:59] LABS: Basophils % (manual) 0 (0.0-2.0); Blast Cells 0; Myelocytes % 0; Promyelocytes % 0; Reactive Lymphocytes 0
[2024-01-13 04:00] LABS: Chloride 104 mmol/L (98-107); Potassium 3.7 mmol/L (3.5-5.1); Sodium 142 mmol/L (136-145)
[2024-01-13 04:01] LABS: Anion Gap 8 (5-15); Carbon Dioxide 30 mmol/L (20-30)
[2024-01-13 04:02] LABS: Calcium 7.7 mg/dL (8.5-10.1)
[2024-01-13 04:06] LABS: BUN/Creatinine Ratio 36.7 (10.0-20.0); Blood Urea Nitrogen 40 mg/dL (9-23); Glucose 183 mg/dL (74-106)
[2024-01-13 04:33] LABS: Band Neutrophils % (manual) 18; Eosinophils % (manual) 41 (0-7); Lymphocytes % (manual) 3 (10.0-50.0); Metamyelocytes % 2; Monocytes % (manual) 1 (0-12); Platelet Estimate Decreased; Smudge Cells 3 /100 WBC; Target Cell FEW
[2024-01-13 04:34] LABS: Stomatocytes Many
[2024-01-13] MEDS ORDERED: MAGNESIUM SULFATE 1GM/100ML 100 ML IV SCH (09:00)
[2024-01-13 09:08] LABS: Base Excess 3.2 mmol/L (-2.0-2.0)
[2024-01-13] MEDS: POTASSIUM CHL 20MEQ/100ML 100 ML IV SCH (13:06)
[2024-01-13] MEDS: MAGNESIUM SULFATE 1GM/100ML 100 ML IV SCH (14:06)
[2024-01-13] MEDS: fentaNYL Drip 2500mCg/250mlNS 250 ML IV SCH (14:23)
[2024-01-13] MEDS: BUMETANIDE 2.5mg/10ml (0.25 mg/ml) INJ IV SCH (17:30)
[2024-01-14] VITALS (107 sets, daily range): BP systolic 68–149; BP diastolic 23–79; PULSE 57–109; RESP 8–36; TEMP 97.9–99.5; O2SAT 81–100
[2024-01-14 03:50] LABS: Hemoglobin 8.4 g/dL (12.2-16.2)
[2024-01-14 03:53] LABS: Hematocrit 26.9 % (36.0-46.0); Mean Corpuscular Hemoglobin 26.4 pg (28.0-32.0); Mean Corpuscular Hgb Conc. 31.3 g/dL (32.0-36.0); Mean Corpuscular Volume 84.4 fL (80.0-100.0); Red Blood Cells 3.19 10^6/uL (4.0-5.20); Red Cell Distribution Width 17.1 % (11.8-14.3); White Blood Cell 25.5 10^3/uL (4.4-10.8)
[2024-01-14 03:56] LABS: Basophils % (manual) 0 (0.0-2.0); Blast Cells 0; Promyelocytes % 0; Reactive Lymphocytes 0
[2024-01-14 04:02] LABS: Chloride 103 mmol/L (98-107); Potassium 3.7 mmol/L (3.5-5.1); Sodium 139 mmol/L (136-145)
[2024-01-14 04:03] LABS: Anion Gap 4 (5-15); Carbon Dioxide 32 mmol/L (20-30)
[2024-01-14 04:04] LABS: Calcium 7.9 mg/dL (8.7-10.4)
[2024-01-14 04:08] LABS: BUN/Creatinine Ratio 40.7 (10.0-20.0); Blood Urea Nitrogen 37 mg/dL (9-23); Glucose 178 mg/dL (74-106)
[2024-01-14 04:09] LABS: Magnesium 1.7 mg/dL (1.6-2.6)
[2024-01-14 04:36] LABS: Band Neutrophils % (manual) 17; Eosinophils % (manual) 48 (0-7); Lymphocytes % (manual) 10 (10.0-50.0); Metamyelocytes % 4; Monocytes % (manual) 2 (0-12); Myelocytes % 6; Platelet Estimate Decreased
[2024-01-14 08:30] LABS: Base Excess 5.1 mmol/L (-2.0-2.0)
[2024-01-14] MEDS: ACETYLCYSTEINE 10 %(100MG/ML) SOL 4ML NEB SCH (12:46)
[2024-01-14] MEDS: IPRATROPIUM BROM 0.5 MG/2.5ML INH SOL NEB SCH (12:46)
[2024-01-14] MEDS: ALBUTEROL SULF 2.5 MG/0.5ML(0.5%) NEB SOLN NEB SCH (12:46)
[2024-01-15] VITALS (112 sets, daily range): BP systolic 92–192; BP diastolic 30–122; PULSE 95–113; RESP 8–45; TEMP 99.1–100.4; O2SAT 91–100
[2024-01-15 04:07] LABS: Chloride 101 mmol/L (98-107)
[2024-01-15 04:08] LABS: Hematocrit 26.1 % (36.0-46.0); Hemoglobin 8.1 g/dL (12.2-16.2); Mean Corpuscular Hemoglobin 26.3 pg (28.0-32.0); Mean Corpuscular Volume 84.6 fL (80.0-100.0); Potassium 3.6 mmol/L (3.5-5.1); Red Blood Cells 3.08 10^6/uL (4.0-5.20); Red Cell Distribution Width 17.4 % (11.8-14.3); Sodium 140 mmol/L (136-145); White Blood Cell 21.9 10^3/uL (4.4-10.8)
[2024-01-15 04:09] LABS: Anion Gap 5 (5-15); Carbon Dioxide 34 mmol/L (20-30)
[2024-01-15 04:14] LABS: BUN/Creatinine Ratio 45.2 (10.0-20.0); Blood Urea Nitrogen 38 mg/dL (9-23); Glucose 215 mg/dL (74-106)
[2024-01-15 04:27] LABS: Blast Cells 0; Metamyelocytes % 0; Myelocytes % 0; Promyelocytes % 0; Reactive Lymphocytes 0
[2024-01-15 06:22] LABS: Band Neutrophils % (manual) 1; Basophils % (manual) 11 (0.0-2.0); Lymphocytes % (manual) 10 (10.0-50.0); Monocytes % (manual) 2 (0-12)
[2024-01-15 06:23] LABS: Anisocytosis Slight; Platelet Estimate Decreased
[2024-01-15 06:24] LABS: Eosinophils % (manual) 34 (0-7); Polychromasia Slight; Target Cell FEW
[2024-01-15 07:52] LABS: Base Excess 9.7 mmol/L (-2.0-2.0)
[2024-01-15] MEDS: hydrALAZINE HCL 20 MG/ML VL IV PRN (22:39)
[2024-01-16] VITALS (99 sets, daily range): BP systolic 113–180; BP diastolic 33–79; PULSE 95–118; RESP 6–30; TEMP 97.3–100; O2SAT 89–100
[2024-01-16 04:06] LABS: Chloride 101 mmol/L (98-107); Potassium 3.1 mmol/L (3.5-5.1); Sodium 141 mmol/L (136-145)
[2024-01-16 04:07] LABS: Anion Gap 5 (5-15); Carbon Dioxide 35 mmol/L (20-30)
[2024-01-16 04:08] LABS: Calcium 7.9 mg/dL (8.5-10.1); Hemoglobin 7.7 g/dL (12.2-16.2); Mean Corpuscular Hemoglobin 26.1 pg (28.0-32.0); Mean Corpuscular Hgb Conc. 30.7 g/dL (32.0-36.0); Mean Corpuscular Volume 84.9 fL (80.0-100.0); Red Blood Cells 2.95 10^6/uL (4.0-5.20); Red Cell Distribution Width 17.8 % (11.8-14.3); White Blood Cell 20.3 10^3/uL (4.4-10.8)
[2024-01-16 04:11] LABS: Basophils % (manual) 0 (0.0-2.0); Blast Cells 0; Metamyelocytes % 0; Myelocytes % 0; Promyelocytes % 0; Reactive Lymphocytes 0
[2024-01-16 04:12] LABS: Glucose 185 mg/dL (74-106)
[2024-01-16 04:13] LABS: Blood Urea Nitrogen 41 mg/dL (9-23)
[2024-01-16 05:01] LABS: Band Neutrophils % (manual) 1; Eosinophils % (manual) 39 (0-7); Lymphocytes % (manual) 23 (10.0-50.0); Monocytes % (manual) 1 (0-12); Platelet Estimate Decreased
[2024-01-16 05:02] LABS: Anisocytosis Slight; Stomatocytes Moderate; Target Cell FEW
[2024-01-16] MEDS: POTASSIUM CHL 20MEQ/100ML 100 ML IV SCH (05:23)
[2024-01-16 08:51] LABS: Base Excess 9.5 mmol/L (-2.0-2.0)
[2024-01-16] MEDS: MEROPENEM 1GM IVPB 50 ML IV SCH (12:40)
[2024-01-16 15:17] LABS: Base Excess 11.1 mmol/L (-2.0-2.0)
[2024-01-16] MEDS: ENOXAPARIN SOD 30 MG/0.3 ML SYRINGE SC ONE (15:37)
[2024-01-16] MEDS: BUMETANIDE 2.5mg/10ml (0.25 mg/ml) INJ IV SCH (18:25)
[2024-01-17] VITALS (36 sets, daily range): BP systolic 91–153; BP diastolic 38–63; PULSE 79–101; RESP 12–27; TEMP 97.5–99.2; O2SAT 92–100
[2024-01-17 03:53] LABS: White Blood Cell 15.9 10^3/uL (4.4-10.8)
[2024-01-17 04:00] LABS: Hematocrit 23.5 % (36.0-46.0); Hemoglobin 7.1 g/dL (12.2-16.2); Mean Corpuscular Hemoglobin 25.9 pg (28.0-32.0); Mean Corpuscular Hgb Conc. 30.3 g/dL (32.0-36.0); Mean Corpuscular Volume 85.5 fL (80.0-100.0); Red Blood Cells 2.75 10^6/uL (4.0-5.20)
[2024-01-17 04:06] LABS: Anion Gap 6 (5-15); Carbon Dioxide 37 mmol/L (20-30); Chloride 99 mmol/L (98-107); Potassium 3.3 mmol/L (3.5-5.1); Sodium 142 mmol/L (136-145)
[2024-01-17 04:07] LABS: Calcium 8.1 mg/dL (8.7-10.4)
[2024-01-17 04:12] LABS: BUN/Creatinine Ratio 45.1 (10.0-20.0); Blood Urea Nitrogen 41 mg/dL (9-23); Glucose 122 mg/dL (74-106)
[2024-01-17 04:36] LABS: Basophils % (manual) 0 (0.0-2.0); Blast Cells 0; Metamyelocytes % 0; Myelocytes % 0; Promyelocytes % 0; Reactive Lymphocytes 0
[2024-01-17 06:42] LABS: Band Neutrophils % (manual) 2; Eosinophils % (manual) 35 (0-7); Lymphocytes % (manual) 32 (10.0-50.0); Monocytes % (manual) 2 (0-12)
[2024-01-17 06:43] LABS: Anisocytosis Slight; Platelet Estimate Decreased; Stomatocytes Many; Target Cell FEW
[2024-01-17] MEDS: ENOXAPARIN SOD 30 MG/0.3 ML SYRINGE SC SCH (09:52)
[2024-01-17] MEDS: POTASSIUM CHL 20MEQ/100ML 100 ML IV ONE ×2 (15:46→18:13)
[2024-01-17] MEDS ORDERED: CLINIMIX PER PHARMACY 0 ML IV SCH (17:00)
[2024-01-17] MEDS ORDERED: DEXTROSE (50%) 50ML SYRG IV SCH (20:00)
[2024-01-17] MEDS: AMINO ACID INFUSION IN D10W 1,000 ML IV SCH (21:22)
[2024-01-17] MEDS: ACCU-CHEK COMFORT CURVE STRIP VI SCH (23:49)
[2024-01-17] MEDS: InsuLIN REG 1unit/0.01ml Soln (100units/ml) SC SCH (23:49)
[2024-01-18] VITALS (37 sets, daily range): BP systolic 105–156; BP diastolic 44–112; PULSE 82–128; RESP 12–30; TEMP 98.6–100.1; O2SAT 92–99
[2024-01-18 04:12] LABS: Hematocrit 22.4 % (36.0-46.0); Mean Corpuscular Hemoglobin 26.7 pg (28.0-32.0); Mean Corpuscular Hgb Conc. 31.4 g/dL (32.0-36.0); Mean Corpuscular Volume 85.1 fL (80.0-100.0); Red Blood Cells 2.63 10^6/uL (4.0-5.20); Red Cell Distribution Width 18.2 % (11.8-14.3); White Blood Cell 14.4 10^3/uL (4.4-10.8)
[2024-01-18 04:29] LABS: Albumin 1.9 g/dL (3.2-4.8); Alkaline Phosphatase 447 U/L (46-116); Anion Gap 6 (5-15); Aspartate Aminotransferase 35 U/L (13-40); BUN/Creatinine Ratio 34.3 (10.0-20.0); Blood Urea Nitrogen 36 mg/dL (9-23); Carbon Dioxide 36 mmol/L (20-30); Chloride 99 mmol/L (98-107); Glucose 151 mg/dL (74-106); Magnesium 1.3 mg/dL (1.6-2.6); Potassium 3.4 mmol/L (3.5-5.1); Sodium 141 mmol/L (136-145)
[2024-01-18 04:30] LABS: Bilirubin, Total 1.2 mg/dL (0.2-1.0); Total Protein 6.9 g/dL (5.7-8.2)
[2024-01-18 04:38] LABS: Alanine Aminotransferase < 9 U/L (7-40)
[2024-01-18 04:41] LABS: Basophils % (manual) 0 (0.0-2.0); Blast Cells 0; Metamyelocytes % 0; Myelocytes % 0; Promyelocytes % 0; Reactive Lymphocytes 0
[2024-01-18 05:40] LABS: Anisocytosis Slight; Band Neutrophils % (manual) 3; Eosinophils % (manual) 36 (0-7); Lymphocytes % (manual) 29 (10.0-50.0); Monocytes % (manual) 1 (0-12); Platelet Estimate Decreased; Stomatocytes Many
[2024-01-18] MEDS: MAGNESIUM SULFATE 1GM/100ML 100 ML IV SCH (09:44)
[2024-01-18] MEDS: POTASSIUM CHL 20MEQ/100ML 100 ML IV SCH (09:44)
[2024-01-18] MEDS: ONDANSETRON HCL 4 MG/2 ML VIAL IV PRN (20:09)
[2024-01-19] VITALS (16 sets, daily range): BP systolic 110–129; BP diastolic 48–64; PULSE 74–90; RESP 17–22; TEMP 97.4–98; O2SAT 94–99
[2024-01-19 05:44] LABS: Mean Corpuscular Hemoglobin 26.8 pg (28.0-32.0)
[2024-01-19 05:48] LABS: Potassium 3.5 mmol/L (3.5-5.1)
[2024-01-19 05:49] LABS: Calcium 8.2 mg/dL (8.7-10.4)
[2024-01-19 05:54] LABS: BUN/Creatinine Ratio 31.7 (10.0-20.0)
[2024-01-19 05:55] LABS: Magnesium 1.8 mg/dL (1.6-2.6)
[2024-01-19 05:56] LABS: Albumin 2.1 g/dL (3.2-4.8); Phosphorus 3.4 mg/dL (2.4-5.1)
[2024-01-19 06:08] LABS: Hematocrit 22.9 % (36.0-46.0); Hemoglobin 7.1 g/dL (12.2-16.2); Mean Corpuscular Hgb Conc. 30.9 g/dL (32.0-36.0); Mean Corpuscular Volume 86.8 fL (80.0-100.0); Red Blood Cells 2.64 10^6/uL (4.0-5.20); White Blood Cell 13.4 10^3/uL (4.4-10.8)
[2024-01-19 06:10] LABS: Band Neutrophils % (manual) 0; Basophils % (manual) 0 (0.0-2.0); Blast Cells 0; Metamyelocytes % 0; Myelocytes % 0; Promyelocytes % 0; Reactive Lymphocytes 0
[2024-01-19 07:23] LABS: Eosinophils % (manual) 59 (0-7); Lymphocytes % (manual) 12 (10.0-50.0); Monocytes % (manual) 8 (0-12); Platelet Estimate Adequate
[2024-01-20] VITALS (19 sets, daily range): BP systolic 111–133; BP diastolic 46–69; PULSE 76–88; RESP 17–22; TEMP 98–98.7; O2SAT 89–100
[2024-01-20 07:13] LABS: Potassium 3.3 mmol/L (3.5-5.1)
[2024-01-20 07:14] LABS: Calcium 8.2 mg/dL (8.7-10.4)
[2024-01-20 07:19] LABS: BUN/Creatinine Ratio 30.1 (10.0-20.0); Magnesium 1.6 mg/dL (1.6-2.6)
[2024-01-20 07:21] LABS: Albumin 2.2 g/dL (3.2-4.8); Phosphorus 2.5 mg/dL (2.4-5.1)
[2024-01-20 10:57] LABS: Mean Corpuscular Volume 86.3 fL (80.0-100.0)
[2024-01-20 11:00] LABS: Mean Corpuscular Hemoglobin 26.3 pg (28.0-32.0); Mean Corpuscular Hgb Conc. 30.4 g/dL (32.0-36.0); Red Blood Cells 2.66 10^6/uL (4.0-5.20); Red Cell Distribution Width 18.3 % (11.8-14.3); White Blood Cell 13.5 10^3/uL (4.4-10.8)
[2024-01-20 11:10] LABS: Basophils % (manual) 0 (0.0-2.0); Blast Cells 0; Metamyelocytes % 0; Myelocytes % 0; Promyelocytes % 0; Reactive Lymphocytes 0
[2024-01-20 11:30] LABS: Band Neutrophils % (manual) 1; Eosinophils % (manual) 45 (0-7); Lymphocytes % (manual) 32 (10.0-50.0); Monocytes % (manual) 5 (0-12); Platelet Estimate Adequate
[2024-01-20] MEDS: MORPHINE SULFATE INJ 2 MG/ml SYRG IV PRN (17:52)
[2024-01-21] VITALS (12 sets, daily range): BP systolic 110–142; BP diastolic 52–73; PULSE 73–87; RESP 16–22; TEMP 98–98.9; O2SAT 96–100
[2024-01-21 10:25] LABS: Hemoglobin 7.6 g/dL (12.2-16.2); White Blood Cell 12.2 10^3/uL (4.4-10.8)
[2024-01-21 10:27] LABS: Hematocrit 24.5 % (36.0-46.0); Mean Corpuscular Hemoglobin 26.8 pg (28.0-32.0); Mean Corpuscular Volume 86.4 fL (80.0-100.0); Red Blood Cells 2.84 10^6/uL (4.0-5.20); Red Cell Distribution Width 17.6 % (11.8-14.3)
[2024-01-21 10:37] LABS: Band Neutrophils % (manual) 0; Basophils % (manual) 0 (0.0-2.0); Blast Cells 0; Metamyelocytes % 0; Myelocytes % 0; Promyelocytes % 0; Reactive Lymphocytes 0
[2024-01-21 10:39] LABS: Chloride 97 mmol/L (98-107); Potassium 3.8 mmol/L (3.5-5.1); Sodium 133 mmol/L (136-145)
[2024-01-21 10:40] LABS: Anion Gap 2 (5-15); Carbon Dioxide 34 mmol/L (20-30)
[2024-01-21 10:41] LABS: Calcium 7.9 mg/dL (8.5-10.1)
[2024-01-21 10:45] LABS: Anisocytosis Slight; Eosinophils % (manual) 44 (0-7); Hypochromia Slight; Lymphocytes % (manual) 35 (10.0-50.0); Monocytes % (manual) 5 (0-12); Polychromasia Slight
[2024-01-21 10:46] LABS: BUN/Creatinine Ratio 21.9 (10.0-20.0); Blood Urea Nitrogen 21 mg/dL (9-23); Glucose 143 mg/dL (74-106); Platelet Estimate Adequate
[2024-01-22] VITALS (9 sets, daily range): BP systolic 129–164; BP diastolic 62–75; PULSE 78–90; RESP 18–22; TEMP 97.8–98.6; O2SAT 97–100
[2024-01-22] MEDS: ALBUTEROL SULF 2.5 MG/0.5ML(0.5%) NEB SOLN NEB PRN (05:59)
[2024-01-22] MEDS: IPRATROPIUM BROM 0.5 MG/2.5ML INH SOL NEB PRN (05:59)
[2024-01-22 07:44] LABS: Basophils # (auto) 0.2 10 ^3/uL (0-0.2); Eosinophils # (auto) 4.1 10 ^3/uL (0-0.8); Hemoglobin 8.1 g/dL (12.2-16.2); Mean Corpuscular Volume 86.4 fL (80.0-100.0); Neutrophils # (auto) 1.2 10 ^3/uL (1.6-8.6); Neutrophils % (auto) 11.9 % (37.0-80.0); Nucleated Red Blood Cells % 0.1 %; White Blood Cell 9.7 10^3/uL (4.4-10.8)
[2024-01-22 07:46] LABS: Basophils % (auto) 1.8 % (0.0-2.0); Eosinophils % (auto) 42.8 % (0.0-7.0); Hematocrit 25.9 % (36.0-46.0); Lymphocytes # (auto) 3.5 10 ^3/uL (0.4-5.4); Lymphocytes % (auto) 36.6 % (10.0-50.0); Mean Corpuscular Hgb Conc. 31.2 g/dL (32.0-36.0); Monocytes # (auto) 0.7 10 ^3/uL (0-1.3); Monocytes % (auto) 6.9 % (0.0-12.0)
[2024-01-23] VITALS (9 sets, daily range): BP systolic 125–144; BP diastolic 57–90; PULSE 75–89; RESP 20–22; TEMP 98–98.6; O2SAT 97–100
[2024-01-24] VITALS (7 sets, daily range): BP systolic 146–156; BP diastolic 70–76; PULSE 74–97; RESP 16–26; TEMP 98.1–98.5; O2SAT 17–99
[2024-01-24 06:41] LABS: Anion Gap 2 (5-15); Carbon Dioxide 31 mmol/L (20-30); Chloride 101 mmol/L (98-107); Potassium 4.3 mmol/L (3.5-5.1); Sodium 134 mmol/L (136-145)
[2024-01-24 06:42] LABS: Calcium 8.3 mg/dL (8.5-10.1)
[2024-01-24 06:47] LABS: BUN/Creatinine Ratio 13.9 (10.0-20.0); Blood Urea Nitrogen 11 mg/dL (9-23); Glucose 131 mg/dL (74-106)
[2024-01-24 07:11] LABS: Hematocrit 24.1 % (36.0-46.0); Hemoglobin 7.8 g/dL (12.2-16.2); Mean Corpuscular Hemoglobin 27.7 pg (28.0-32.0); Mean Corpuscular Hgb Conc. 32.2 g/dL (32.0-36.0); Mean Corpuscular Volume 85.8 fL (80.0-100.0); Red Blood Cells 2.81 10^6/uL (4.0-5.20); Red Cell Distribution Width 18.6 % (11.8-14.3); White Blood Cell 7.4 10^3/uL (4.4-10.8)
[2024-01-24 07:18] LABS: Band Neutrophils % (manual) 0; Basophils % (manual) 0 (0.0-2.0); Blast Cells 0; Metamyelocytes % 0; Myelocytes % 0; Promyelocytes % 0; Reactive Lymphocytes 0
[2024-01-24 07:49] LABS: Eosinophils % (manual) 30 (0-7); Lymphocytes % (manual) 35 (10.0-50.0); Monocytes % (manual) 9 (0-12); Platelet Estimate Adequate
[2024-01-24 07:50] LABS: Anisocytosis Slight
== END 2024-01-24 18:25 | DRG 720 ==
LOC: EDBD 15:17 → ER 15:17 → TELE 20:50 → ICU WEST 20:50 → TELE-WESTW 01-18 22:26
PROVIDERS: ADMIT Nurse Practitioner; ATTEND Internal Medicine Pulmonary Disease
PROC: 5A1955Z Respiratory Ventilation, Greater than 96 Consecutive Hours (ICD-10-PCS; 2024-01-03)
PROC: 0BH17EZ Insertion of Endotracheal Airway into Trachea, Via Natural or Artificial Opening (ICD-10-PCS; 2024-01-03)
PROC: 02HV33Z Insertion of Infusion Device into Superior Vena Cava, Percutaneous Approach (ICD-10-PCS; 2024-01-03)
PROC: B548ZZA Ultrasonography of Superior Vena Cava, Guidance (ICD-10-PCS; 2024-01-03)
PROC: 0B948ZZ Drainage of Right Upper Lobe Bronchus, Via Natural or Artificial Opening Endoscopic (ICD-10-PCS; 2024-01-10)
PROC: 0B9F8ZZ Drainage of Right Lower Lung Lobe, Via Natural or Artificial Opening Endoscopic (ICD-10-PCS; principal; 2024-01-10 12:15)
PROC: 30233N1 Transfusion of Nonautologous Red Blood Cells into Peripheral Vein, Percutaneous Approach (ICD-10-PCS; 2024-01-20)
DX: A41.02 Sepsis due to Methicillin resistant Staphylococcus aureus (principal); N17.0 Acute kidney failure with tubular necrosis; R65.21 Severe sepsis with septic shock; G93.41 Metabolic encephalopathy; J15.212 Pneumonia due to Methicillin resistant Staphylococcus aureus; J96.01 Acute respiratory failure with hypoxia; J96.02 Acute respiratory failure with hypercapnia; I50.33 Acute on chronic diastolic (congestive) heart failure; D69.6 Thrombocytopenia, unspecified; J44.0 Chronic obstructive pulmonary disease with (acute) lower respiratory infection; Z20.822 Contact with and (suspected) exposure to COVID-19; Z66 Do not resuscitate; I21.A1 Myocardial infarction type 2; I13.0 Hypertensive heart and chronic kidney disease with heart failure and stage 1 through stage 4 chronic kidney disease, or unspecified chronic kidney disease; E87.20 Acidosis, unspecified; D62 Acute posthemorrhagic anemia; L03.115 Cellulitis of right lower limb; E66.01 Morbid (severe) obesity due to excess calories; L03.116 Cellulitis of left lower limb; E88.09 Other disorders of plasma-protein metabolism, not elsewhere classified; N18.9 Chronic kidney disease, unspecified; I16.0 Hypertensive urgency; Z68.43 Body mass index [BMI] 50.0-59.9, adult; Z88.6 Allergy status to analgesic agent; Z88.0 Allergy status to penicillin; Z88.1 Allergy status to other antibiotic agents
CPT/HCPCS: 31645; 36415; 36600; 70450; 71045; 73700; 76604; 76775; 80048; 80053; 80061; 80069; 80202; 80307; 81001; 82040; 82140; 82306; 82550; 82570; 82805; 82962; 83605; 83690; 83735; 83880; 83970; 84100; 84132; 84156; 84300; 84443; 84484; 85007; 85014; 85018; 85025; 85027; 85379; 85610; 85730; 86850; 86900; 86901; 86920; 87040; 87070; 87077; 87081; 87086; 87205; 87426; 87804; 92610; 93005; 93306; 93970; 94002; 94003; 94640; 97110; 97163; 97530; 99291; C9113; G0378; J0131; J0171; J1815; J1956; J2185; J2250; J2405; J3480; J7060; P9047

== ENCOUNTER 2024-01-25 12:01 | Emergency (ER) | payer MEDICARE, MEDICAID ==
[~2024-01-25] VITALS: Ht 165.1 cm; Wt 150.0 kg
[2024-01-25 12:01] VITALS: PULSE 0; O2SAT 0
[2024-01-25] MEDS ORDERED: SODIUM BICARB 8.4% 50Meq/50ml SYR INJ IV ONE (12:02)
== END 2024-01-25 12:17 ==
LOC: EDBD 12:01 → ER 12:01
DX: I46.9 Cardiac arrest, cause unspecified (principal); J44.9 Chronic obstructive pulmonary disease, unspecified; R41.82 Altered mental status, unspecified; I10 Essential (primary) hypertension; Z88.0 Allergy status to penicillin; Z88.6 Allergy status to analgesic agent; Z88.8 Allergy status to other drugs, medicaments and biological substances
CPT/HCPCS: 92950